=== PATIENT | male | born 2000 | race Caucasian/White ===

== ENCOUNTER 2020-07-02 08:15 | Emergency (ER) | payer BC, OTHER ==
[2020-07-02 08:21] VITALS: TEMP 98.6
--- NOTE | 2020-07-02 09:10 | ED ---
General Adult HPI - General Stated complaint: Sore throat,stuffy nose,Cough Time Seen by Provider: 07/02/20 08:19 Source: patient, RN notes reviewed Mode of arrival: ambulatory Limitations: no limitations - History of Present Illness Initial comments: This a 19-year-old male presents emergency Department chief complaint of nasal congestion, runny nose, cough. Patient states nonproductive cough denies any known sick contacts no fevers chills no bodyaches or shortness breath or chest pain. Patient states that he has a cold is no significant past multiple history NO KNOWN DRUG ALLERGIES has not tried any [id number] cough and cold medications. - Related Data Previous Rx's Medication Instructions Recorded Fluticasone Nasal [place] [Flonase 2 spr EA NOSTRIL DAILY #1 bottle 07/02/20 Nasal [place]] Allergies Allergy/AdvReac Type Severity Reaction Status Date / Time No Known Allergies Allergy Verified 07/02/20 08:21 Review of Systems ROS Statement: Those systems with pertinent positive or pertinent negative responses have been documented in the HPI. ROS Other: All systems not noted in ROS Statement are negative. Past Medical History Past Medical History: No Reported History History of Any Multi-Drug Resistant Organisms: None Reported Past Surgical History: No Surgical Hx Reported Smoking Status: Never smoker Past Alcohol Use History: None Reported Past Drug Use History: None Reported General Exam Limitations: no limitations General appearance: alert, in no apparent distress Head exam: Present: atraumatic, normocephalic, normal inspection Eye exam: Present: normal appearance, PERRL, EOMI. Absent: scleral icterus, conjunctival injection, periorbital swelling ENT exam: Present: mucous membranes moist, TM's normal bilaterally, normal external ear exam. Absent: normal oropharynx (Mild postnasal drainage) Neck exam: Present: normal inspection, full ROM. Absent: tenderness, meningismus, lymphadenopathy Respiratory exam: Present: normal lung sounds bilaterally. Absent: respiratory distress, wheezes, rales, rhonchi, stridor Cardiovascular Exam: Present: regular rate (Heart rate was 108 on triage note on exam 80), normal rhythm, normal heart sounds. Absent: systolic murmur, diastolic murmur, rubs, gallop, clicks Neurological exam: Present: alert Skin exam: Present: warm, dry, intact, normal color. Absent: rash Course Vital Signs 05/16/21 08:17 Temperature 98.6 F Pulse Rate 108 H Respiratory 18 Rate Blood Pressure 151/95 O2 Sat by Pulse 97 Oximetry Medical Decision Making - Medical Decision Making Patient's vitals were reviewed patient is stable, patient is in no signs of distress covid-19 test is negative. patient also has a viral uri versus ALLERGIES. Patient discharged in stable condition. - Lab Data Lab Results 07/02/20 Range/Units 08:25 Coronavirus (PCR) Not Detected (Not Detectd) Disposition Clinical Impression: URI (upper respiratory infection) Disposition: HOME SELF-CARE Condition: Stable Instructions (If sedation given, give patient instructions): Upper Respiratory Infection (ED) Additional Instructions: Please return to the Emergency Department if symptoms worsen or any other concerns. Prescriptions: Fluticasone Nasal [place] [Flonase Nasal [place]] 2 spr EA NOSTRIL DAILY #1 bottle Is patient prescribed a controlled substance at d/c from ED?: No Referrals: Morgan Ansari MD [Primary Care Provider] - 1-2 days Time of Disposition: 09:10
[2020-07-02 09:23] VITALS: BP 122/78; PULSE 90; RESP 20
== END 2020-07-02 09:22 | disposition home or self-care (01) ==
LOC: EC 08:15
DX: J06.9 Acute upper respiratory infection, unspecified (principal); Z20.822 Contact with and (suspected) exposure to COVID-19
CPT/HCPCS: 87635; 99283